=== PATIENT | female | born 1950 | race Caucasian/White ===

== ENCOUNTER 2024-03-23 12:57 | Oncology outpatient (recurring) (ONCR) | payer BC, SELFPAY ==
[2024-03-01 10:32] LABS: Reticulocyte % 0.9 % (0.5-2.0)
[2024-03-01 10:33] LABS: Basophils # 0.1 10^3/uL (0.0-0.1); Basophils % 0.5 %; Eosinophils # 0.1 10^3/uL (0.0-0.8); Eosinophils % 0.9 %; Hematocrit 45.7 % (36-47); Lymphocytes % 10.5 %; Mean Corpuscular HGB Conc 31.5 g/dL (30-55); Mean Corpuscular Hemoglobin 28.7 pg (27-33); Mean Corpuscular Volume 91.2 fl (85-98); Mean Platelet Volume 11.3 fL (7.4-10.4); Monocytes # 0.8 10^3/uL (0.2-0.9); Monocytes % 8.1 %; Neutrophils # 7.59 10^3/uL (1.8-7.7); Neutrophils % 79.7 %; Nucleated Red Blood Cells % 0 %; Platelet Count 434 10^3/cmm (157-399); Red Blood Count 5.01 10^6/uL (3.85-5.65); Red Cell Distribution Width 14.1 % (12.1-15.1); White Blood Count 9.53 10^3/uL (3.29-11.43)
[2024-03-01 12:04] LABS: Carcinoembryonic Antigen 3.3 ng/mL (0.0-4.7); Free T4 Free Thyroxine 1.15 ng/dL (0.82-1.77); Thyroid Stimulating Hormone 1.72 uIU/mL (0.27-4.20)
[2024-03-01 12:16] LABS: Alanine Aminotransferase 13 U/L (0-33); Albumin Level 3.8 g/dL (3.5-5.2); Alkaline Phosphatase 75 U/L (35-105); Aspartate Amino Transferase 15 U/L (0-32); Blood Urea Nitrogen 12 mg/dL (8-23); Calcium 10.3 mg/dL (8.5-10.5); Carbon Dioxide 27 mmol/L (22-29); Chloride 103 mmol/L (98-107); Creatinine Clr Calc Pharmacy 50.0595; Globulin 3.1 g/dL (1.3-4.6); Glucose 84 mg/dL (65-115); Osmolality Calculated 289 mOsm/kg (285-295); Sodium 140 mmol/L (136-145); Total Bilirubin 0.2 mg/dL (0.15-1.2); Total Protein 6.9 g/dL (6.6-8.7)
[2024-03-01 14:41] LABS: Ferritin 197 ng/mL (15-150); Iron 25 ug/dL (37-145); Percent Saturation 9.6 % (20-50); Total Iron Binding Capacity 258 mcg/dl; Unsaturated Iron Binding 233 ug/dL (112-347)
[2024-03-01 14:55] LABS: Vitamin B12 383 pg/mL (232-1245)
[2024-03-01 14:59] LABS: Folate Level 6.5 ng/mL (4.8-37.3)
[2024-03-05 02:44] LABS: Methylmalonic Acid 294 nmol/L (87-318)
[2024-03-09 11:55] LABS: Soluble Transferrin Receptor 1.32 mg/L (0.76-1.76)
[2024-03-09] MEDS: iohexol 350 mg/mL 500 mL Btl (per mL) PO (12:24)
--- NOTE | 2024-03-09 13:00 | CTR_ITS ---
PROCEDURE INFORMATION: Exam: CT Chest With Contrast; Diagnostic Exam date and time: 03/09/2024 1:31 PM Age: 73 years old Clinical indication: Condition or disease; Other: Primary squamous cell carcinoma of rectum TECHNIQUE: Imaging protocol: Diagnostic computed tomography of the chest with contrast. Radiation optimization: All CT scans at this facility use at least one of these dose optimization techniques: automated exposure control; mA and/or kV adjustment per patient size (includes targeted exams where dose is matched to clinical indication); or iterative reconstruction. Contrast material: OMNI 350; Contrast volume: 95 ml; Contrast route: INTRAVENOUS (IV); COMPARISON: No relevant prior studies available. RADIATION DOSE METRICS: Total DLP (mGy-cm): 316.12 FINDINGS: Lungs: Unremarkable. No consolidation. No masses. Pleural spaces: Unremarkable. No pneumothorax. No pleural effusion. Heart: Unremarkable. No cardiomegaly. No pericardial effusion. Lymph nodes: Nonenlarged pretracheal lymph node. Vasculature: Unremarkable. No aortic aneurysm. 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 4 mm rounded sclerotic lesion in the T7 vertebral body. Soft tissues: Unremarkable. PROCEDURE INFORMATION: Exam: CT Abdomen With Contrast Exam date and time: 03/09/2024 1:31 PM Age: 73 years old Clinical indication: Condition or disease; Other: Primary squamous cell carcinoma of rectum TECHNIQUE: Imaging protocol: Computed tomography of the abdomen with contrast. Radiation optimization: All CT scans at this facility use at least one of these dose optimization techniques: automated exposure control; mA and/or kV adjustment per patient size (includes targeted exams where dose is matched to clinical indication); or iterative reconstruction. Contrast material: OMNI 350; Contrast volume: 95 ml; Contrast route: INTRAVENOUS (IV); COMPARISON: No relevant prior studies available. RADIATION DOSE METRICS: Total DLP (mGy-cm): 316.12 FINDINGS: Liver: Normal. No mass. Gallbladder and bile ducts: Single large stone in the gallbladder. No intra or extrahepatic biliary ductal dilatation. Pancreas: Normal. No ductal dilation. Spleen: Normal. No splenomegaly. Adrenal glands: Normal. No mass. Kidneys and ureters: Normal. No hydronephrosis. Stomach and bowel: Visualized stomach and bowel are unremarkable. No obstruction. No mucosal thickening. Intraperitoneal space: Unremarkable. No free air. No significant fluid collection. Vasculature: Unremarkable. No abdominal aortic aneurysm. Lymph nodes: Unremarkable. No enlarged lymph nodes. Bones/joints: Degenerative changes in the lumbar spine. Soft tissues: Unremarkable. CT/CT chest abd w con*[id number] IMPRESSION: 1. No pulmonary parenchymal mass. 2. 4 mm rounded sclerotic lesion in the T7 vertebral body. Sclerotic metastasis not entirely excluded but unlikely. IMPRESSION: 1. Single large stone in the gallbladder. No intra or extrahepatic biliary ductal dilatation. 2. Please note, pelvis is not imaged. 3. No intraabdominal mass.
[2024-03-09] MEDS: iohexol 350 mg/mL 500 mL Btl (per mL) IV (13:36)
--- NOTE | 2024-03-23 13:45 | MR_ITS ---
WS: [id number] MRI THORACIC SPINE with and without contrast HISTORY: T7 sclerotic lesion seen on CT. COMPARISON: CT 03/09/2024 TECHNIQUE: Multiplanar sequences are performed in sagittal and axial planes. Postcontrast imaging Mul tiHance 10 mL. Degenerative disc disease in the cervical spine at C5-6 encroaching upon the central canal with mild stenosis. Mild increase in thoracic kyphosis. Disc spaces are narrowed and desiccated. Posterior alignment of t he thoracic vertebral bodies is normal. Chronic marrow changes involving the anterior T7 and T8 verte bral bodies. Benign hemangioma at L2. Previously described sclerotic lesion in the posterior LEFT lat eral T7 vertebral body is identified with a maximum diameter of 4 mm. There is enhancement. This is m ost consistent with a small bone island. No vertebral body mass or signal abnormality concerning for metastatic disease. No epidural mass or cord compression. The postcontrast axial images limited by mo tion artifact but there is no abnormality appreciated. No cord compression. Visualized upper abdomen is negative. No adrenal mass. No adenopathy identified within the mediastinum. Atherosclerosis aorta and the pulmonary artery appea rs mildly prominent. Heart appears slightly enlarged. MR/MR thoracic spine wo/w [id number] IMPRESSION: 1. No osseous metastatic disease in the thoracic spine. 2. Previously described sclerotic lesion in T7 does not enhance and is most co nsistent with a benign bone island. 3. Mild chronic degenerative endplate changes anteriorly at T7 and T8. L2 sandie ngioma. 4. No cord compression.
[2024-03-23] MEDS: gadobenate dimeglumine 20 mL vial IV (13:48)
== END 2024-03-26 23:59 | disposition home or self-care (01) ==
LOC: ONCMED 12:58 → RAD 12:58 → ONCMED 04-11 07:42
PROVIDERS: Visit Provider Internal Medicine
DX: C20 Malignant neoplasm of rectum (principal); R93.5 Abnormal findings on diagnostic imaging of other abdominal regions, including retroperitoneum; D18.09 Hemangioma of other sites
CPT/HCPCS: 36415; 71260; 72157; 74160; 80053; 82378; 82607; 82728; 82746; 83540; 83550; 83921; 84238; 84439; 84443; 85025; 85045; A9577; Q9967